=== PATIENT | female | born 1960 | race Caucasian/White ===

== ENCOUNTER 2018-11-30 09:47 | Inpatient (IN) | payer BC ==
--- NOTE | 2018-11-30 09:50 | EDM.PDOC ---
ED HPI GENERAL MEDICAL PROBLEM - General Stated Complaint: WHEEZING, BACK PAIN Time Seen by Provider: 11/30/18 09:48 Source of Information: Reports: Patient History Limitations: Reports: No Limitations - History of Present Illness INITIAL COMMENTS - FREE TEXT/NARRATIVE: History of present illness: []Patient has had shortness of breath and a sore throat this week. She went to clinic this morning and received a breathing treatment and was sent to the ER for evaluation after no improvement. Review of systems: As per history of present illness and below otherwise all systems reviewed and negative. Past medical history: As per history of present illness and as reviewed below otherwise noncontributory. Surgical history: As per history of present illness and as reviewed below otherwise noncontributory. Social history: No reported history of drug or alcohol abuse. Family history: As per history of present illness and as reviewed below otherwise noncontributory. Physical exam: General: Well developed, well nourished in NAD HEENT: Atraumatic, normocephalic, pupils reactive, negative for conjunctival pallor or scleral icterus, mucous membranes moist, throat clear, neck supple, nontender, trachea midline. Lungs: Clear to auscultation, breath sounds equal bilaterally, chest nontender. Heart: S1S2, regular, negative for clicks, rubs, or JVD. Abdomen: NABS, Soft, nondistended, nontender. Negative for masses or hepatosplenomegaly. Negative for costovertebral tenderness. Pelvis: Stable nontender. Genitourinary: Deferred. Rectal: Deferred. Extremities: Atraumatic, negative for cords or calf pain. Neurovascular unremarkable. Neuro: Awake, alert, oriented. Cranial nerves II through XII unremarkable. Cerebellum unremarkable. Motor and sensory unremarkable throughout. Exam nonfocal. Skin:warm and dry Diagnostics: Chest x-ray, CBC, chemistry, blood cultures Therapeutics: IV hydration, DuoNeb, continuous albuterol neb, magnesium, ED Course: Patient's wheezing continued in the ER despite treatment Impression: Left basilar atelectasis with reactive airway Prescriptions: None Plan: Patient is requesting to be admitted she feels unimproved. Definitive disposition and diagnosis as appropriate pending reevaluation and review of above. Back Pain Score (Numeric/FACES): 7 - Related Data Allergies Allergy/AdvReac Type Severity Reaction Status Date / Time No Known Allergies Allergy Verified 11/30/18 09:50 Home Meds: Home Meds Multivitamin [Multivitamins] 1 each PO DAILY 11/30/18 [History] traZODone HCl [Trazodone HCl] 50 mg PO BEDTIME 11/30/18 [History] ED ROS GENERAL - Review of Systems Review Of Systems: See Below ED EXAM, GENERAL - Physical Exam Exam: See Below Course - Vital Signs Last Recorded V/S: Last Vital Signs Temp 97.0 F 11/30/18 09:52 Pulse 83 11/30/18 09:52 Resp 24 H 11/30/18 09:52 BP Pulse Ox 95 11/30/18 09:52 - Orders/Labs/Meds Orders: Active Orders 24 hr Category Date Time Status Patient Status [ADT] Stat ADT 11/30/18 11:07 Active RT Aerosol Therapy [RC] ASDIRECTED Care 11/30/18 09:51 Active RT Aerosol Therapy [RC] ASDIRECTED Care 11/30/18 09:59 Active COMPREHENSIVE METABOLIC PN,CMP [CHEM] Stat Lab 11/30/18 10:58 Received CULTURE BLOOD [BC] Stat Lab 11/30/18 10:54 Ordered CULTURE BLOOD [BC] Stat Lab 11/30/18 10:58 Received Magnesium Sulfate/Water [Magnesium Sulfate in Water Med 11/30/18 10:53 Active Premix] 2 gm Premix Bag 1 bag IV ONETIME Sodium Chloride 0.9% [Saline Flush] Med 11/30/18 10:16 Active 10 ml FLUSH ASDIRECTED PRN Sodium Chloride 0.9% [Saline Flush] Med 11/30/18 10:16 Active 2.5 ml FLUSH ASDIRECTED PRN Blood Culture x2 Reflex Set [OM.PC] Stat Oth 11/30/18 10:54 Ordered Saline Lock Insert [OM.PC] Stat Oth 11/30/18 10:16 Ordered Medication Orders Magnesium Sulfate 2 gm/ Premix 50 mls @ 25 mls/hr IV ONETIME ONE Stop: 11/30/18 12:52 Sodium Chloride (Saline Flush) 10 ml FLUSH ASDIRECTED PRN PRN Reason: Keep Vein Open Last Admin: 11/30/18 10:32 Dose: 10 ml Sodium Chloride (Saline Flush) 2.5 ml FLUSH ASDIRECTED PRN PRN Reason: Keep Vein Open Last Admin: 11/30/18 10:32 Dose: 2.5 ml Labs: Laboratory Tests 11/30/18 Range/Units 10:58 WBC 7.33 (4.0-11.0) K/uL RBC 4.89 (4.30-5.90) M/uL Hgb 14.2 (12.0-16.0) g/dL Hct 41.6 (36.0-46.0) % MCV 85.1 (80.0-98.0) fL MCH 29.0 (27.0-32.0) pg MCHC 34.1 (31.0-37.0) g/dL RDW Std Deviation 40.7 (28.0-62.0) fl RDW Coeff of Du 13 (11.0-15.0) % Plt Count 226 (150-400) K/uL MPV 10.20 (7.40-12.00) fL Neut % (Auto) 63.7 (48.0-80.0) % Lymph % (Auto) 26.1 (16.0-40.0) % [place] % (Auto) 10.0 (0.0-15.0) % Eos % (Auto) 0.1 (0.0-7.0) % Baso % (Auto) 0.1 (0.0-1.5) % Neut # (Auto) 4.7 (1.4-5.7) K/uL Lymph # (Auto) 1.9 (0.6-2.4) K/uL [place] # (Auto) 0.7 (0.0-0.8) K/uL Eos # (Auto) 0.0 (0.0-0.7) K/uL Baso # (Auto) 0.0 (0.0-0.1) K/uL Nucleated RBC % 0.0 /100WBC Nucleated RBCs # 0 K/uL Meds: Medications Generic Name Dose Route Start Last Admin Trade Name Freq PRN Reason Stop Dose Admin Magnesium Sulfate 2 gm/ Premix 50 mls @ 25 mls/hr 11/30/18 10:53 IV 11/30/18 12:52 ONETIME ONE Sodium Chloride 10 ml 11/30/18 10:16 11/30/18 10:32 Saline Flush FLUSH 10 ml ASDIRECTED PRN Administration Keep Vein Open Sodium Chloride 2.5 ml 11/30/18 10:16 11/30/18 10:32 Saline Flush FLUSH 2.5 ml ASDIRECTED PRN Administration Keep Vein Open Discontinued Medications Generic Name Dose Route Start Last Admin Trade Name Freq PRN Reason Stop Dose Admin Albuterol 10 mg 11/30/18 09:58 11/30/18 10:11 Proventil Neb Soln NEB 11/30/18 09:59 2 ml ONETIME ONE Administration Albuterol/Ipratropium 3 ml 11/30/18 09:51 11/30/18 09:56 Duoneb 3.0-0.5 Mg/3 Ml NEB 11/30/18 09:52 3 ml ONETIME ONE Administration Sodium Chloride 1,000 mls @ 999 mls/hr 11/30/18 10:16 11/30/18 10:32 Normal Saline IV 11/30/18 11:16 999 mls/hr .Bolus ONE Administration Ceftriaxone Sodium/Dextrose 1 50 mls @ 100 mls/hr 11/30/18 10:38 11/30/18 11: 20 gm/ Premix IV 11/30/18 11:07 100 mls/hr ONETIME ONE Administration Prednisone 60 mg 11/30/18 09:51 11/30/18 10:11 Prednisone PO 11/30/18 09:52 60 mg ONETIME ONE Administration Departure - Departure Time of Disposition: 11:23 Disposition: Refer to Observation Condition: Good Clinical Impression: Pneumonia Qualifiers: Pneumonia type: due to unspecified organism Laterality: left Lung location: lower lobe of lung Qualified Code(s): J18.1 - Lobar pneumonia, unspecified organism - Discharge Information *PRESCRIPTION DRUG MONITORING PROGRAM REVIEWED*: No *COPY OF PRESCRIPTION DRUG MONITORING REPORT IN PATIENT RUDOLPH: No Referrals: PCP,Not In Area [Primary Care Provider] - Additional Instructions: The following information is given to patients seen in the emergency department who are being discharged to home. This information is to outline your options for follow-up care. We provide all patients seen in our emergency department with a follow-up referral. The need for follow-up, as well as the timing and circumstances, are variable depending upon the specifics of your emergency department visit. If you don't have a primary care physician on staff, we will provide you with a referral. We always advise you to contact your personal physician following an emergency department visit to inform them of the circumstance of the visit and for follow-up with them and/or the need for any referrals to a consulting specialist. The emergency department will also refer you to a specialist when appropriate. This referral assures that you have the opportunity for follow-up care with a specialist. All of these measure are taken in an effort to provide you with optimal care, which includes your follow-up. Under all circumstances we always encourage you to contact your private physician who remains a resource for coordinating your care. When calling for follow-up care, please make the office aware that this follow-up is from your recent emergency room visit. If for any reason you are refused follow-up, please contact the [facility] Emergency Department at and asked to speak to the emergency department charge nurse. - My Orders Last 24 Hours: My Active Orders 11/30/18 09:51 RT Aerosol Therapy [RC] ASDIRECTED 11/30/18 09:59 RT Aerosol Therapy [RC] ASDIRECTED 11/30/18 10:16 Sodium Chloride 0.9% [Saline Flush] 10 ml FLUSH ASDIRECTED PRN Sodium Chloride 0.9% [Saline Flush] 2.5 ml FLUSH ASDIRECTED PRN Saline Lock Insert [OM.PC] Stat 11/30/18 10:53 Magnesium Sulfate/Water [Magnesium Sulfate in Water Premix] 2 gm Premix Bag 1 bag IV ONETIME 11/30/18 10:54 CULTURE BLOOD [BC] Stat Blood Culture x2 Reflex Set [OM.PC] Stat 11/30/18 10:58 COMPREHENSIVE METABOLIC PN,CMP [CHEM] Stat CULTURE BLOOD [BC] Stat 11/30/18 11:07 Patient Status [ADT] Stat - Assessment/Plan Last 24 Hours: My Active Orders 11/30/18 09:51 RT Aerosol Therapy [RC] ASDIRECTED 11/30/18 09:59 RT Aerosol Therapy [RC] ASDIRECTED 11/30/18 10:16 Sodium Chloride 0.9% [Saline Flush] 10 ml FLUSH ASDIRECTED PRN Sodium Chloride 0.9% [Saline Flush] 2.5 ml FLUSH ASDIRECTED PRN Saline Lock Insert [OM.PC] Stat 11/30/18 10:53 Magnesium Sulfate/Water [Magnesium Sulfate in Water Premix] 2 gm Premix Bag 1 bag IV ONETIME 11/30/18 10:54 CULTURE BLOOD [BC] Stat Blood Culture x2 Reflex Set [OM.PC] Stat 11/30/18 10:58 COMPREHENSIVE METABOLIC PN,CMP [CHEM] Stat CULTURE BLOOD [BC] Stat 11/30/18 11:07 Patient Status [ADT] Stat
[2018-11-30] MEDS ORDERED: Albuterol/Ipratropium 3.0-0.5 MG/3 ML Neb Soln NEB ONE (09:51)
[2018-11-30] MEDS ORDERED: predniSONE 20 MG Tab PO ONE (09:51)
[2018-11-30] MEDS ORDERED: Albuterol 0.5% 5 MG/ML Neb Soln 20 ML Bottle NEB ONE (09:58)
[2018-11-30] MEDS ORDERED: Sodium Chloride 0.9% 1,000 ML IV ONE (10:16)
[2018-11-30] MEDS ORDERED: Sodium Chloride 0.9% 10 ML Syringe FLUSH PRN (10:16)
[2018-11-30] MEDS ORDERED: Sodium Chloride 0.9% 2.5 ML Syringe FLUSH PRN (10:16)
--- NOTE | 2018-11-30 10:17 | CR ---
EXAMINATION: Portable chest radiograph. HISTORY: Shortness of breath. FINDINGS: The trachea is midline. The cardiomediastinal silhouette is within normal limits. Mild left basilar atelectasis and/or infiltrate. A trace left pleural effusion is not excluded. No pneumothorax. Osseous structures appear unremarkable. IMPRESSION: 1. Mild left basilar infiltrate and/or atelectasis.
[2018-11-30] MEDS ORDERED: cefTRIAXone 1 GM in Premix Bag 1 BAG IV ONE (10:38)
[2018-11-30] MEDS ORDERED: Magnesium Sulfate/Water 2 GM in Premix Bag 1 BAG IV ONE (10:53)
[2018-11-30 11:59] LABS: CHLORIDE,CL 107 mmol/L (98-107); SODIUM,NA 141 mmol/L (136-145)
[2018-11-30] MEDS ORDERED: Albuterol/Ipratropium 3.0-0.5 MG/3 ML Neb Soln NEB PRN (12:19)
--- NOTE | 2018-11-30 12:24 | PCM.HP ---
H&P History of Present Illness - General Date of Service: 11/30/18 Admit Problem/Dx: Admission Diagnosis/Problem Admission Diagnosis/Problem Pneumonia - History of Present Illness Initial Comments - Free Text/Narative: 58 yo female who presented with a three day history of shortness of breath, nonproductive cough, fevers and chills. She reports wheezing. She has had a bronchitis and pneumonia in the past but no diagnosis of asthma or COPD. She is a former smoker. Back Pain Score (Numeric/FACES): 7 - Related Data Allergies/Adverse Reactions: Allergies Allergy/AdvReac Type Severity Reaction Status Date / Time No Known Allergies Allergy Verified 11/30/18 12:53 Home Medications: Home Meds Aspirin [Adult Low Dose Aspirin EC] 81 mg PO Q48H 11/30/18 [History] Multivitamin [Multivitamins] 1 each PO DAILY 11/30/18 [History] traZODone HCl [Trazodone HCl] 50 mg PO BEDTIME 11/30/18 [History] Past Medical History - Infectious Disease History Infectious Disease History: Reports: Chicken Pox, Measles, Mumps - Past Surgical History GI Surgical History: Reports: Cholecystectomy Female Surgical History: Reports: Breast Biopsy, Hysterectomy Musculoskeletal Surgical History: Reports: Hip Replacement Other Musculoskeletal Surgeries/Procedures:: Left hip March 2018 Social & Family History - Family History Family Medical History: Noncontributory - Tobacco Use Smoking Status *Q: Former Smoker Used Tobacco, but Quit: Yes Month/Year Tobacco Last Used: 2008 - Caffeine Use Caffeine Use: Reports: Coffee - Recreational Drug Use Recreational Drug Use: No H&P Review of Systems - Review of Systems: Review Of Systems: ROS reveals no pertinent complaints other than HPI. Exam - Exam Exam: See Below - Vital Signs Vital Signs: Last Vital Signs Temp 36.1 C 11/30/18 09:52 Pulse 75 11/30/18 12:05 Resp 18 11/30/18 11:21 BP 119/82 11/30/18 11:21 Pulse Ox 96 11/30/18 12:05 Weight: 86.183 kg - Exam General: Alert, Oriented Lungs: Normal Respiratory Effort, Wheezing Cardiovascular: Regular Rate, Regular Rhythm GI/Abdominal Exam: Soft, Non-Tender Skin: Warm, Dry Neurological: Cranial Nerves Intact - Patient Data Lab Results Last 24 hrs: Laboratory Results - last 24 hr 11/30/18 11/30/18 11/30/18 Range/Units 10:58 10:58 11:43 WBC 7.33 (4.0-11.0) K/uL RBC 4.89 (4.30-5.90) M/uL Hgb 14.2 (12.0-16.0) g/dL Hct 41.6 (36.0-46.0) % MCV 85.1 (80.0-98.0) fL MCH 29.0 (27.0-32.0) pg MCHC 34.1 (31.0-37.0) g/dL RDW Std Deviation 40.7 (28.0-62.0) fl RDW Coeff of Du 13 (11.0-15.0) % Plt Count 226 (150-400) K/uL MPV 10.20 (7.40-12.00) fL Neut % (Auto) 63.7 (48.0-80.0) % Lymph % (Auto) 26.1 (16.0-40.0) % [place] % (Auto) 10.0 (0.0-15.0) % Eos % (Auto) 0.1 (0.0-7.0) % Baso % (Auto) 0.1 (0.0-1.5) % Neut # (Auto) 4.7 (1.4-5.7) K/uL Lymph # (Auto) 1.9 (0.6-2.4) K/uL [place] # (Auto) 0.7 (0.0-0.8) K/uL Eos # (Auto) 0.0 (0.0-0.7) K/uL Baso # (Auto) 0.0 (0.0-0.1) K/uL Nucleated RBC % 0.0 /100WBC Nucleated RBCs # 0 K/uL Sodium 141 (136-145) mmol/L Potassium 4.0 (3.5-5.1) mmol/L Chloride 107 (98-107) mmol/L Carbon Dioxide 21.5 (21.0-32.0) mmol/L BUN 13 (7.0-18.0) mg/dL Creatinine 0.7 (0.6-1.0) mg/dL Est Cr Clr Drug Dosing 84.01 mL/min Estimated GFR (MDRD) > 60.0 ml/min Glucose 98 (74-106) mg/dL Calcium 8.9 (8.5-10.1) mg/dL Total Bilirubin 0.5 (0.2-1.0) mg/dL AST 30 (15-37) IU/L ALT 40 (14-63) IU/L Alkaline Phosphatase 55 (46-116) U/L Total Protein 7.5 (6.4-8.2) g/dL Albumin 3.6 (3.4-5.0) g/dL Globulin 3.9 (2.6-4.0) g/dL Albumin/Globulin Ratio 0.9 (0.9-1.6) Urine Color YELLOW Urine Appearance CLEAR Urine pH 5.5 (5.0-8.0) Ur Specific [place] 1.010 (1.001-1.035) Urine Protein NEGATIVE (NEGATIVE) mg/dL Urine Glucose (UA) NEGATIVE (NEGATIVE) mg/dL Urine Ketones NEGATIVE (NEGATIVE) mg/dL Urine Occult Blood NEGATIVE (NEGATIVE) Urine Nitrite NEGATIVE (NEGATIVE) Urine Bilirubin NEGATIVE (NEGATIVE) Urine Urobilinogen 0.2 (<2.0) EU/dL Ur Leukocyte Esterase MODERATE H (NEGATIVE) Urine RBC 0-1 (0-2/HPF) Urine WBC 2-4 (0-5/HPF) Ur Epithelial Cells RARE (NONE-FEW) Urine Bacteria FEW (NEGATIVE) Result Diagrams: 12/01/18 05:20 12/01/18 05:20 Problem List Initiated/Reviewed/Updated: Yes Orders Last 24hrs: Active Orders 24 hr Category Date Time Status Patient Status [ADT] Stat ADT 11/30/18 11:07 Active Oxygen Therapy Adult [Oxygen Therapy, ED] [RC] Care 11/30/18 12:04 Active ASDIRECTED RT Aerosol Therapy [RC] ASDIRECTED Care 11/30/18 09:51 Active RT Aerosol Therapy [RC] ASDIRECTED Care 11/30/18 09:59 Active RT Aerosol Therapy [RC] ASDIRECTED Care 11/30/18 12:20 Ordered CULTURE BLOOD [BC] Stat Lab 11/30/18 10:58 Received CULTURE BLOOD [BC] Stat Lab 11/30/18 11:10 Received CULTURE SPUTUM + SMEAR [RM] Routine Lab 11/30/18 12:21 Ordered CULTURE URINE [RM] Stat Lab 11/30/18 11:43 Received Albuterol/Ipratropium [DuoNeb 3.0-0.5 MG/3 ML] Med 11/30/18 12:19 Ordered 3 ml NEB Q2H PRN Azithromycin [Zithromax] 500 mg Med 11/30/18 12:30 Ordered Sodium Chloride 0.9% [Normal Saline] 250 ml IV Q24H Magnesium Sulfate/Water [Magnesium Sulfate in Water Med 11/30/18 10:53 Active Premix] 2 gm Premix Bag 1 bag IV ONETIME Sodium Chloride 0.9% [Saline Flush] Med 11/30/18 10:16 Active 10 ml FLUSH ASDIRECTED PRN Sodium Chloride 0.9% [Saline Flush] Med 11/30/18 10:16 Active 2.5 ml FLUSH ASDIRECTED PRN cefTRIAXone [Rocephin] 1 gm Med 12/01/18 12:30 Ordered Sodium Chloride 0.9% [Normal Saline] 50 ml IV Q24H methylPREDNISolone Sod Succ [Solu-MEDROL] Med 12/01/18 16:00 Ordered 125 mg IVPUSH Q8H traZODone Med 11/30/18 21:00 Ordered 50 mg PO BEDTIME Blood Culture x2 Reflex Set [OM.PC] Stat Oth 11/30/18 10:54 Ordered Saline Lock Insert [OM.PC] Stat Oth 11/30/18 10:16 Ordered Medication Orders Albuterol/Ipratropium (Duoneb 3.0-0.5 Mg/3 Ml) 3 ml NEB Q2H PRN PRN Reason: Wheezing Magnesium Sulfate 2 gm/ Premix 50 mls @ 25 mls/hr IV ONETIME ONE Stop: 11/30/18 12:52 Last Admin: 11/30/18 12:02 Dose: 25 mls/hr Azithromycin 500 mg/ Sodium (Chloride) 250 mls @ 250 mls/hr IV Q24H JEFFERY Ceftriaxone Sodium 1 gm/ (Sodium Chloride) 50 mls @ 100 mls/hr IV Q24H JEFFERY Methylprednisolone Sodium Succinate (Solu-Medrol) 125 mg IVPUSH Q8H JEFFERY Sodium Chloride (Saline Flush) 10 ml FLUSH ASDIRECTED PRN PRN Reason: Keep Vein Open Last Admin: 11/30/18 10:32 Dose: 10 ml Sodium Chloride (Saline Flush) 2.5 ml FLUSH ASDIRECTED PRN PRN Reason: Keep Vein Open Last Admin: 11/30/18 10:32 Dose: 2.5 ml Trazodone HCl (Trazodone) 50 mg PO BEDTIME [facility] Assessment/Plan Comment:: 58 yo female admitted with Pneumonia with reactive airway disease. We will treat with Rocephin, Azithromycin, solumedrol, and duonebs. Patient will likely need outpatient PFTs.
[2018-11-30] MEDS: Azithromycin 500 MG in Sodium Chloride 0.9% 250 ML IV SCH (14:21)
[2018-11-30] MEDS: Acetaminophen 325 MG Tab PO PRN ×2 (14:49→20:15)
[2018-11-30] MEDS: Albuterol/Ipratropium 3.0-0.5 MG/3 ML Neb Soln NEB SCH (17:53)
[2018-11-30] MEDS: traZODone 50 MG Tab PO SCH (20:15)
[2018-12-01] MEDS: Albuterol/Ipratropium 3.0-0.5 MG/3 ML Neb Soln NEB SCH ×5 (00:04→23:05)
[2018-12-01 05:45] LABS: CHLORIDE,CL 110 mmol/L (98-107); SODIUM,NA 143 mmol/L (136-145)
[2018-12-01] MEDS: Acetaminophen 325 MG Tab PO PRN ×4 (06:26→23:01)
--- NOTE | 2018-12-01 11:49 | PCM.PN ---
- General Info Date of Service: 12/01/18 - Review of Systems Systems Review Comment:: reports no improvement in cough or shortness of breath, daughter believes patient is looking better. - Patient Data Vitals - Most Recent: Last Vital Signs Temp 36.2 C 12/01/18 11:00 Pulse 68 12/01/18 11:00 Resp 18 12/01/18 11:00 BP 125/60 12/01/18 11:00 Pulse Ox 96 12/01/18 11:00 Weight - Most Recent: 86.183 kg I&O - Last 24 Hours: Intake & Output 11/30/18 12/01/18 12/01/18 22:59 06:59 14:59 Intake Total 490 500 Output Total 250 600 Balance 240 -100 Lab Results Last 24 Hours: Laboratory Results - last 24 hr 11/30/18 11/30/18 12/01/18 Range/Units 10:58 11:43 05:20 WBC 7.00 (4.0-11.0) K/uL RBC 4.64 (4.30-5.90) M/uL Hgb 13.2 (12.0-16.0) g/dL Hct 39.9 (36.0-46.0) % MCV 86.0 (80.0-98.0) fL MCH 28.4 (27.0-32.0) pg MCHC 33.1 (31.0-37.0) g/dL RDW Std Deviation 41.2 (28.0-62.0) fl RDW Coeff of Du 13 (11.0-15.0) % Plt Count 228 (150-400) K/uL MPV 10.10 (7.40-12.00) fL Nucleated RBC % 0.0 /100WBC Nucleated RBCs # 0 K/uL Sodium 141 (136-145) mmol/L Potassium 4.0 (3.5-5.1) mmol/L Chloride 107 (98-107) mmol/L Carbon Dioxide 21.5 (21.0-32.0) mmol/L BUN 13 (7.0-18.0) mg/dL Creatinine 0.7 (0.6-1.0) mg/dL Est Cr Clr Drug Dosing 84.01 mL/min Estimated GFR (MDRD) > 60.0 ml/min Glucose 98 (74-106) mg/dL Calcium 8.9 (8.5-10.1) mg/dL Total Bilirubin 0.5 (0.2-1.0) mg/dL AST 30 (15-37) IU/L ALT 40 (14-63) IU/L Alkaline Phosphatase 55 (46-116) U/L Total Protein 7.5 (6.4-8.2) g/dL Albumin 3.6 (3.4-5.0) g/dL Globulin 3.9 (2.6-4.0) g/dL Albumin/Globulin Ratio 0.9 (0.9-1.6) Urine Color YELLOW Urine Appearance CLEAR Urine pH 5.5 (5.0-8.0) Ur Specific [place] 1.010 (1.001-1.035) Urine Protein NEGATIVE (NEGATIVE) mg/dL Urine Glucose (UA) NEGATIVE (NEGATIVE) mg/dL Urine Ketones NEGATIVE (NEGATIVE) mg/dL Urine Occult Blood NEGATIVE (NEGATIVE) Urine Nitrite NEGATIVE (NEGATIVE) Urine Bilirubin NEGATIVE (NEGATIVE) Urine Urobilinogen 0.2 (<2.0) EU/dL Ur Leukocyte Esterase MODERATE H (NEGATIVE) Urine RBC 0-1 (0-2/HPF) Urine WBC 2-4 (0-5/HPF) Ur Epithelial Cells RARE (NONE-FEW) Urine Bacteria FEW (NEGATIVE) 12/01/18 Range/Units 05:20 WBC (4.0-11.0) K/uL RBC (4.30-5.90) M/uL Hgb (12.0-16.0) g/dL Hct (36.0-46.0) % MCV (80.0-98.0) fL MCH (27.0-32.0) pg MCHC (31.0-37.0) g/dL RDW Std Deviation (28.0-62.0) fl RDW Coeff of Du (11.0-15.0) % Plt Count (150-400) K/uL MPV (7.40-12.00) fL Nucleated RBC % /100WBC Nucleated RBCs # K/uL Sodium 143 (136-145) mmol/L Potassium 3.8 (3.5-5.1) mmol/L Chloride 110 H (98-107) mmol/L Carbon Dioxide 23.0 (21.0-32.0) mmol/L BUN 10 (7.0-18.0) mg/dL Creatinine 0.7 (0.6-1.0) mg/dL Est Cr Clr Drug Dosing 84.01 mL/min Estimated GFR (MDRD) > 60.0 ml/min Glucose 92 (74-106) mg/dL Calcium 8.5 (8.5-10.1) mg/dL Total Bilirubin (0.2-1.0) mg/dL AST (15-37) IU/L ALT (14-63) IU/L Alkaline Phosphatase (46-116) U/L Total Protein (6.4-8.2) g/dL Albumin (3.4-5.0) g/dL Globulin (2.6-4.0) g/dL Albumin/Globulin Ratio (0.9-1.6) Urine Color Urine Appearance Urine pH (5.0-8.0) Ur Specific [place] (1.001-1.035) Urine Protein (NEGATIVE) mg/dL Urine Glucose (UA) (NEGATIVE) mg/dL Urine Ketones (NEGATIVE) mg/dL Urine Occult Blood (NEGATIVE) Urine Nitrite (NEGATIVE) Urine Bilirubin (NEGATIVE) Urine Urobilinogen (<2.0) EU/dL Ur Leukocyte Esterase (NEGATIVE) Urine RBC (0-2/HPF) Urine WBC (0-5/HPF) Ur Epithelial Cells (NONE-FEW) Urine Bacteria (NEGATIVE) Adal Results Last 24 Hours: Microbiology 11/30/18 11:10 Aerobic Blood Culture - Preliminary Blood - Venous - Lab Draw NO GROWTH AFTER 1 DAY Anaerobic Blood Culture - Preliminary NO GROWTH AFTER 1 DAY 11/30/18 10:58 Aerobic Blood Culture - Preliminary Blood - Venous NO GROWTH AFTER 1 DAY Anaerobic Blood Culture - Preliminary NO GROWTH AFTER 1 DAY Med Orders - Current: Current Medications Acetaminophen (Tylenol) 650 mg PO Q4H PRN PRN Reason: Pain Last Admin: 12/01/18 10:37 Dose: 650 mg Albuterol/Ipratropium (Duoneb 3.0-0.5 Mg/3 Ml) 3 ml NEB Q2H PRN PRN Reason: Wheezing Albuterol/Ipratropium (Duoneb 3.0-0.5 Mg/3 Ml) 3 ml NEB Q6HRRT JEFFERY Last Admin: 12/01/18 11:11 Dose: 3 ml Azithromycin 500 mg/ Sodium (Chloride) 250 mls @ 250 mls/hr IV Q24H [facility] Last Admin: 11/30/18 14:21 Dose: 250 mls/hr Ceftriaxone Sodium 1 gm/ (Sodium Chloride) 50 mls @ 100 mls/hr IV Q24H JEFFERY Methylprednisolone Sodium Succinate (Solu-Medrol) 125 mg IVPUSH Q8H [facility] Sodium Chloride (Saline Flush) 10 ml FLUSH ASDIRECTED PRN PRN Reason: Keep Vein Open Last Admin: 11/30/18 10:32 Dose: 10 ml Sodium Chloride (Saline Flush) 2.5 ml FLUSH ASDIRECTED PRN PRN Reason: Keep Vein Open Last Admin: 11/30/18 10:32 Dose: 2.5 ml Trazodone HCl (Trazodone) 50 mg PO BEDTIME [facility] Last Admin: 11/30/18 20:15 Dose: 50 mg Discontinued Medications Albuterol (Proventil Neb Soln) 10 mg NEB ONETIME ONE Stop: 11/30/18 09:59 Last Admin: 11/30/18 10:11 Dose: 2 ml Albuterol/Ipratropium (Duoneb 3.0-0.5 Mg/3 Ml) 3 ml NEB ONETIME ONE Stop: 11/30/18 09:52 Last Admin: 11/30/18 09:56 Dose: 3 ml Sodium Chloride (Normal Saline) 1,000 mls @ 999 mls/hr IV .Bolus ONE Stop: 11/30/18 11:16 Last Admin: 11/30/18 10:32 Dose: 999 mls/hr Ceftriaxone Sodium/Dextrose 1 (gm/ Premix) 50 mls @ 100 mls/hr IV ONETIME ONE Stop: 11/30/18 11:07 Last Admin: 11/30/18 11:20 Dose: 100 mls/hr Magnesium Sulfate 2 gm/ Premix 50 mls @ 25 mls/hr IV ONETIME ONE Stop: 11/30/18 12:52 Last Admin: 11/30/18 12:02 Dose: 25 mls/hr Prednisone (Prednisone) 60 mg PO ONETIME ONE Stop: 11/30/18 09:52 Last Admin: 11/30/18 10:11 Dose: 60 mg - Exam General: Alert, Oriented Neck: Supple Lungs: Normal Respiratory Effort, Rhonchi, Wheezing Extremities: Non-Tender, No Pedal Edema Skin: Warm, Dry, Intact Neurological: No New Focal Deficit - Problem List Review Problem List Initiated/Reviewed/Updated: Yes - My Orders Last 24 Hours: My Active Orders 11/30/18 12:19 Albuterol/Ipratropium [DuoNeb 3.0-0.5 MG/3 ML] 3 ml NEB Q2H PRN 11/30/18 12:20 RT Aerosol Therapy [RC] ASDIRECTED 11/30/18 12:21 CULTURE SPUTUM + SMEAR [RM] Routine 11/30/18 12:25 Antiembolic Devices [RC] PER UNIT ROUTINE Oxygen Therapy [RC] PRN Up ad Jolene [RC] ASDIRECTED VTE/DVT Education [RC] PER UNIT ROUTINE Vital Signs [RC] Q4H Sequential Compression Device [OM.PC] Per Unit Routine Resuscitation Status Routine 11/30/18 12:27 RT Aerosol Therapy [RC] ASDIRECTED 11/30/18 12:30 Azithromycin [Zithromax] 500 mg Sodium Chloride 0.9% [Normal Saline] 250 ml IV Q24H 11/30/18 18:00 Albuterol/Ipratropium [DuoNeb 3.0-0.5 MG/3 ML] 3 ml NEB Q6HRRT 11/30/18 21:00 traZODone 50 mg PO BEDTIME 12/01/18 13:30 cefTRIAXone [Rocephin] 1 gm Sodium Chloride 0.9% [Normal Saline] 50 ml IV Q24H 12/01/18 16:00 methylPREDNISolone Sod Succ [Solu-MEDROL] 125 mg IVPUSH Q8H 12/02/18 05:11 BASIC METABOLIC PANEL,BMP [CHEM] AM CBC WITH AUTO DIFF [HEME] AM - Plan Plan:: 58 yo female admitted with Pneumonia and reactive airway disease. Pneumonia: continue Rocephin and azithromycin Bronchitis: continue Solumol and duonebs.
[2018-12-01] MEDS: Azithromycin 500 MG in Sodium Chloride 0.9% 250 ML IV SCH (12:28)
--- NOTE | 2018-12-01 13:17 | PCM.SN ---
- Free Text/Narrative Note: Patient has had slow progress on her shortness of breath and hypoxia She is still requiring supplemental oxygen and receiving IV antibiotics. We will switch patient to an inpatient room.
[2018-12-01] MEDS: methylPREDNISolone Sodium Succinate 125 MG/2 ML SDV IVPUSH SCH ×2 (16:21→23:05)
[2018-12-01] MEDS: cefTRIAXone 1 GM in Sodium Chloride 0.9% 50 ML IV SCH (17:44)
[2018-12-01] MEDS: traZODone 50 MG Tab PO SCH (21:46)
[2018-12-02] MEDS: Acetaminophen 325 MG Tab PO PRN ×4 (03:56→16:20)
[2018-12-02] MEDS: Albuterol/Ipratropium 3.0-0.5 MG/3 ML Neb Soln NEB SCH ×4 (06:05→23:19)
[2018-12-02 06:07] LABS: CHLORIDE,CL 108 mmol/L (98-107); SODIUM,NA 140 mmol/L (136-145)
[2018-12-02] MEDS: methylPREDNISolone Sodium Succinate 125 MG/2 ML SDV IVPUSH SCH ×2 (08:17→09:08)
[2018-12-02] MEDS: predniSONE 20 MG Tab PO SCH (09:09)
[2018-12-02] MEDS: Ibuprofen 400 MG Tab PO PRN ×2 (09:09→20:25)
--- NOTE | 2018-12-02 11:06 | PCM.PN ---
- General Info Date of Service: 12/02/18 - Review of Systems Systems Review Comment:: patient reports cough has worsened, reports headache. - Patient Data Vitals - Most Recent: Last Vital Signs Temp 36.4 C 12/02/18 10:09 Pulse 86 12/02/18 04:00 Resp 20 12/02/18 07:20 BP 120/60 12/02/18 07:20 Pulse Ox 94 L 12/02/18 07:20 Weight - Most Recent: 86.183 kg I&O - Last 24 Hours: Intake & Output 12/01/18 12/02/18 12/02/18 22:59 06:59 14:59 Intake Total 740 960 Output Total 100 1400 Balance 640 -440 Lab Results Last 24 Hours: Laboratory Results - last 24 hr 12/02/18 12/02/18 Range/Units 05:12 05:12 WBC 9.10 (4.0-11.0) K/uL RBC 4.77 (4.30-5.90) M/uL Hgb 13.8 (12.0-16.0) g/dL Hct 40.9 (36.0-46.0) % MCV 85.7 (80.0-98.0) fL MCH 28.9 (27.0-32.0) pg MCHC 33.7 (31.0-37.0) g/dL RDW Std Deviation 41.3 (28.0-62.0) fl RDW Coeff of Du 13 (11.0-15.0) % Plt Count 282 (150-400) K/uL MPV 10.40 (7.40-12.00) fL Neut % (Auto) 88.8 H (48.0-80.0) % Lymph % (Auto) 10.0 L (16.0-40.0) % [place] % (Auto) 1.1 (0.0-15.0) % Eos % (Auto) 0.0 (0.0-7.0) % Baso % (Auto) 0.1 (0.0-1.5) % Neut # (Auto) 8.1 H (1.4-5.7) K/uL Lymph # (Auto) 0.9 (0.6-2.4) K/uL [place] # (Auto) 0.1 (0.0-0.8) K/uL Eos # (Auto) 0.0 (0.0-0.7) K/uL Baso # (Auto) 0.0 (0.0-0.1) K/uL Nucleated RBC % 0.0 /100WBC Nucleated RBCs # 0 K/uL Sodium 140 (136-145) mmol/L Potassium 4.2 (3.5-5.1) mmol/L Chloride 108 H (98-107) mmol/L Carbon Dioxide 21.1 (21.0-32.0) mmol/L BUN 12 (7.0-18.0) mg/dL Creatinine 0.7 (0.6-1.0) mg/dL Est Cr Clr Drug Dosing 84.01 mL/min Estimated GFR (MDRD) > 60.0 ml/min Glucose 137 H (74-106) mg/dL Calcium 8.9 (8.5-10.1) mg/dL Adal Results Last 24 Hours: Microbiology 11/30/18 11:43 Urine Culture - Final Urine, Clean Catch MIXED LEONID 10,000-100,000 CFU/ML 12/01/18 13:42 Gram Stain - Preliminary Sputum - Expectorated 11/30/18 11:10 Aerobic Blood Culture - Preliminary Blood - Venous - Lab Draw NO GROWTH AFTER 1 DAY Anaerobic Blood Culture - Preliminary NO GROWTH AFTER 1 DAY 11/30/18 10:58 Aerobic Blood Culture - Preliminary Blood - Venous NO GROWTH AFTER 1 DAY Anaerobic Blood Culture - Preliminary NO GROWTH AFTER 1 DAY Med Orders - Current: Current Medications Acetaminophen (Tylenol) 650 mg PO Q4H PRN PRN Reason: Pain Last Admin: 12/02/18 07:31 Dose: 650 mg Albuterol/Ipratropium (Duoneb 3.0-0.5 Mg/3 Ml) 3 ml NEB Q2H PRN PRN Reason: Wheezing Albuterol/Ipratropium (Duoneb 3.0-0.5 Mg/3 Ml) 3 ml NEB Q6HRRT [facility] Last Admin: 12/02/18 06:05 Dose: 3 ml Azithromycin 500 mg/ Sodium (Chloride) 250 mls @ 250 mls/hr IV Q24H [facility] Last Admin: 12/01/18 12:28 Dose: 250 mls/hr Ceftriaxone Sodium 1 gm/ (Sodium Chloride) 50 mls @ 100 mls/hr IV Q24H [facility] Last Admin: 12/01/18 17:44 Dose: 100 mls/hr Ibuprofen (Motrin) 400 mg PO Q6H PRN PRN Reason: pain/headache Last Admin: 12/02/18 09:09 Dose: 400 mg Pantoprazole Sodium (Protonix) 40 mg PO DAILY JEFFERY Prednisone (Prednisone) 40 mg PO WITHBREAKFAST [facility] Last Admin: 12/02/18 09:09 Dose: 40 mg Sodium Chloride (Saline Flush) 10 ml FLUSH ASDIRECTED PRN PRN Reason: Keep Vein Open Last Admin: 11/30/18 10:32 Dose: 10 ml Sodium Chloride (Saline Flush) 2.5 ml FLUSH ASDIRECTED PRN PRN Reason: Keep Vein Open Last Admin: 11/30/18 10:32 Dose: 2.5 ml Trazodone HCl (Trazodone) 50 mg PO BEDTIME [facility] Last Admin: 12/01/18 21:46 Dose: 50 mg Discontinued Medications Albuterol (Proventil Neb Soln) 10 mg NEB ONETIME ONE Stop: 11/30/18 09:59 Last Admin: 11/30/18 10:11 Dose: 2 ml Albuterol/Ipratropium (Duoneb 3.0-0.5 Mg/3 Ml) 3 ml NEB ONETIME ONE Stop: 11/30/18 09:52 Last Admin: 11/30/18 09:56 Dose: 3 ml Sodium Chloride (Normal Saline) 1,000 mls @ 999 mls/hr IV .Bolus ONE Stop: 11/30/18 11:16 Last Admin: 11/30/18 10:32 Dose: 999 mls/hr Ceftriaxone Sodium/Dextrose 1 (gm/ Premix) 50 mls @ 100 mls/hr IV ONETIME ONE Stop: 11/30/18 11:07 Last Admin: 11/30/18 11:20 Dose: 100 mls/hr Magnesium Sulfate 2 gm/ Premix 50 mls @ 25 mls/hr IV ONETIME ONE Stop: 11/30/18 12:52 Last Admin: 11/30/18 12:02 Dose: 25 mls/hr Methylprednisolone Sodium Succinate (Solu-Medrol) 125 mg IVPUSH Q8H [facility] Last Admin: 12/02/18 09:08 Dose: Not Given Prednisone (Prednisone) 60 mg PO ONETIME ONE Stop: 11/30/18 09:52 Last Admin: 11/30/18 10:11 Dose: 60 mg - Exam General: Alert, Oriented Neck: Supple Lungs: Clear to Auscultation, Normal Respiratory Effort Cardiovascular: Regular Rate, Regular Rhythm GI/Abdominal Exam: Soft, Non-Tender Extremities: Non-Tender, No Pedal Edema Skin: Warm, Dry, Intact - Problem List Review Problem List Initiated/Reviewed/Updated: Yes - My Orders Last 24 Hours: My Active Orders 12/01/18 13:03 Admission Status [Patient Status] [ADT] Routine 12/01/18 13:30 cefTRIAXone [Rocephin] 1 gm Sodium Chloride 0.9% [Normal Saline] 50 ml IV Q24H 12/02/18 11:15 Azithromycin [Zithromax] 250 mg PO Q24H Pantoprazole [ProTONIX] 40 mg PO DAILY - Plan Plan:: 58 yo female admitted with Pneumonia and reactive airway disease. Pneumonia: continue Rocephin and azithromycin Bronchitis: continue Solumol and duonebs. Patient reports no improvement in symptoms, but clinically she appears to be much better today. Wheezing on exam has improved.
[2018-12-02] MEDS: Pantoprazole 40 MG Tab.CR PO SCH (11:21)
[2018-12-02] MEDS: Azithromycin 250 MG Tab PO SCH (11:30)
[2018-12-02] MEDS: SUMAtriptan 50 MG Tab PO PRN ×2 (13:39→19:01)
[2018-12-02] MEDS ORDERED: Lidocaine 2% 5 ML SDV ONE (18:07)
--- NOTE | 2018-12-02 18:20 | PCM.SN ---
- Free Text/Narrative Note: Called by nursing as they have been unable to obtain PIV access and Dr Morton has consulted anesthesia to obtain IV access. Ultrasound was used to identified the Left deep brachial vein, 1% lidocaine was infiltrated for local anesthesia, 20g IV catheter was introduced and threaded into the vein with ultrasound without difficulty. Secured with tape and tegaderm. Patient tolerated placement well.
[2018-12-02] MEDS: cefTRIAXone 1 GM in Sodium Chloride 0.9% 50 ML IV SCH (18:53)
[2018-12-02] MEDS: traZODone 50 MG Tab PO SCH (20:26)
[2018-12-02] MEDS: Acetaminophen/Butalbital/Caffeine 325-50-40 MG Tab PO PRN (22:13)
[2018-12-03] MEDS: Albuterol/Ipratropium 3.0-0.5 MG/3 ML Neb Soln NEB SCH (06:08)
[2018-12-03] MEDS: Acetaminophen/Butalbital/Caffeine 325-50-40 MG Tab PO PRN (08:08)
[2018-12-03] MEDS: Pantoprazole 40 MG Tab.CR PO SCH (08:09)
[2018-12-03] MEDS: predniSONE 20 MG Tab PO SCH (08:10)
[2018-12-03] MEDS ORDERED: Albuterol 8 GM Inhaler INH PRN (11:20)
--- NOTE | 2018-12-03 11:33 | PCM.DCSUM1 ---
Discharge Summary - Discharge Data Discharge Date: 12/03/18 Discharge Disposition: Home, Self-Care 01 Condition: Good - Patient Summary/Data Consults: Consultations 12/02/18 17:51 Consult to Physician [CONS] Urgent Hospital Course: Hospital diagnosis community acquired pneumonia Asthma exacerbation Hospital course: 58 yo female who was admitted for community acquired pnemonia and asthma exacerbation. She presented with a three day history of shortness of breath, nonproductive cough, fevers and chills. She had wheezing noted on lung exam and was requiring 2 liters NC to keep sats above 90%. Chest x-ray revealed left basilar infiltrate. She was treated with Rocephin, Azithromycin, and solumedrol. She did have improvement in her symptoms and resolution of her hypoxia. At time of discharge she was walking hallways satting 93%. She is to be discharged home with three more days of Azithromycin, and a steroid taper. She was given a prescription for albuterol and Advair. She is to follow up in the Residency clinic. - Discharge Plan *PRESCRIPTION DRUG MONITORING PROGRAM REVIEWED*: No *COPY OF PRESCRIPTION DRUG MONITORING REPORT IN PATIENT RUDOLPH: No Prescriptions/Med Rec: Albuterol [Proventil HFA] 1 puff INH Q4H PRN #1 inhaler PRN Reason: Wheezing Azithromycin [Zithromax] 250 mg PO Q24H #3 tablet Fluticasone/Salmeterol [Advair 250-50] 1 puff INH BID #1 diskus predniSONE See Taper PO WITHBREAKFAST #15 tablet Home Medications: Home Meds Aspirin [Adult Low Dose Aspirin EC] 81 mg PO Q48H 11/30/18 [History] Multivitamin [Multivitamins] 1 each PO DAILY 11/30/18 [History] traZODone HCl [Trazodone HCl] 50 mg PO BEDTIME 11/30/18 [History] Albuterol [Proventil HFA] 1 puff INH Q4H PRN #1 inhaler 12/03/18 [Rx] Azithromycin [Zithromax] 250 mg PO Q24H #3 tablet 12/03/18 [Rx] Fluticasone/Salmeterol [Advair 250-50] 1 puff INH BID #1 diskus 12/03/18 [Rx] predniSONE See Taper PO WITHBREAKFAST #15 tablet 12/03/18 [Rx] Patient Handouts: Community-Acquired Pneumonia, Adult, [id number] Referrals: Travis Sellers MD [Resident] - 12/14/18 2:30 pm - Discharge Summary/Plan Comment DC Time >30 min.: No - Patient Data Vitals - Most Recent: Last Vital Signs Temp 36.6 C 12/03/18 07:05 Pulse 76 12/03/18 07:05 Resp 18 12/03/18 07:05 BP 108/56 L 12/03/18 07:05 Pulse Ox 93 L 12/03/18 07:05 Weight - Most Recent: 86.183 kg I&O - Last 24 hours: Intake & Output 12/02/18 12/03/18 12/03/18 22:59 06:59 14:59 Intake Total 920 1100 Output Total 1001 1250 Balance -81 -150 ABRAHAM Results - Last 24 hrs: Microbiology 11/30/18 11:10 Aerobic Blood Culture - Preliminary Blood - Venous - Lab Draw NO GROWTH AFTER 3 DAYS Anaerobic Blood Culture - Preliminary NO GROWTH AFTER 3 DAYS 11/30/18 10:58 Aerobic Blood Culture - Preliminary Blood - Venous NO GROWTH AFTER 3 DAYS Anaerobic Blood Culture - Preliminary NO GROWTH AFTER 3 DAYS 12/01/18 13:42 Gram Stain - Final Sputum - Expectorated Sputum Culture - Final Normal Leonid 11/30/18 11:43 Urine Culture - Final Urine, Clean Catch MIXED LEONID 10,000-100,000 CFU/ML Med Orders - Current: Current Medications Acetaminophen (Tylenol) 650 mg PO Q4H PRN PRN Reason: Pain Last Admin: 12/02/18 16:20 Dose: 650 mg Acetaminophen/Butalbital/Caffeine (Fioricet 325-50-40 Mg) 1 tab PO Q6H PRN PRN Reason: Pain Last Admin: 12/03/18 08:08 Dose: 1 tab Albuterol (Proventil Hfa) 0 gm INH Q4H PRN PRN Reason: Wheezing Albuterol/Ipratropium (Duoneb 3.0-0.5 Mg/3 Ml) 3 ml NEB Q2H PRN PRN Reason: Wheezing Albuterol/Ipratropium (Duoneb 3.0-0.5 Mg/3 Ml) 3 ml NEB Q6HRRT [facility] Last Admin: 12/03/18 06:08 Dose: Not Given Azithromycin (Zithromax) 250 mg PO Q24H [facility] Last Admin: 12/02/18 11:30 Dose: 250 mg Ceftriaxone Sodium 1 gm/ (Sodium Chloride) 50 mls @ 100 mls/hr IV Q24H [facility] Last Admin: 12/02/18 18:53 Dose: 100 mls/hr Ibuprofen (Motrin) 400 mg PO Q6H PRN PRN Reason: pain/headache Last Admin: 12/02/18 20:25 Dose: 400 mg Pantoprazole Sodium (Protonix) 40 mg PO DAILY [facility] Last Admin: 12/03/18 08:09 Dose: 40 mg Prednisone (Prednisone) 40 mg PO WITHBREAKFAST [facility] Last Admin: 12/03/18 08:10 Dose: 40 mg Sodium Chloride (Saline Flush) 10 ml FLUSH ASDIRECTED PRN PRN Reason: Keep Vein Open Last Admin: 11/30/18 10:32 Dose: 10 ml Sodium Chloride (Saline Flush) 2.5 ml FLUSH ASDIRECTED PRN PRN Reason: Keep Vein Open Last Admin: 11/30/18 10:32 Dose: 2.5 ml Trazodone HCl (Trazodone) 50 mg PO BEDTIME [facility] Last Admin: 12/02/18 20:26 Dose: 50 mg Discontinued Medications Albuterol (Proventil Neb Soln) 10 mg NEB ONETIME ONE Stop: 11/30/18 09:59 Last Admin: 11/30/18 10:11 Dose: 2 ml Albuterol/Ipratropium (Duoneb 3.0-0.5 Mg/3 Ml) 3 ml NEB ONETIME ONE Stop: 11/30/18 09:52 Last Admin: 11/30/18 09:56 Dose: 3 ml Sodium Chloride (Normal Saline) 1,000 mls @ 999 mls/hr IV .Bolus ONE Stop: 11/30/18 11:16 Last Admin: 11/30/18 10:32 Dose: 999 mls/hr Ceftriaxone Sodium/Dextrose 1 (gm/ Premix) 50 mls @ 100 mls/hr IV ONETIME ONE Stop: 11/30/18 11:07 Last Admin: 11/30/18 11:20 Dose: 100 mls/hr Magnesium Sulfate 2 gm/ Premix 50 mls @ 25 mls/hr IV ONETIME ONE Stop: 11/30/18 12:52 Last Admin: 11/30/18 12:02 Dose: 25 mls/hr Azithromycin 500 mg/ Sodium (Chloride) 250 mls @ 250 mls/hr IV Q24H [facility] Last Admin: 12/01/18 12:28 Dose: 250 mls/hr Lidocaine (Xylocaine-Mpf 2%) Confirm Administered Dose 5 ml .ROUTE .STK-MED ONE Stop: 12/02/18 18:08 Last Admin: 12/02/18 19:47 Dose: Not Given Methylprednisolone Sodium Succinate (Solu-Medrol) 125 mg IVPUSH Q8H [facility] Last Admin: 12/02/18 09:08 Dose: Not Given Prednisone (Prednisone) 60 mg PO ONETIME ONE Stop: 11/30/18 09:52 Last Admin: 11/30/18 10:11 Dose: 60 mg Sumatriptan Succinate (Imitrex) 50 mg PO Q2H PRN PRN Reason: Headache Last Admin: 12/02/18 19:01 Dose: 50 mg
[2018-12-03] MEDS: Azithromycin 250 MG Tab PO SCH (11:35)
== END 2018-12-03 12:00 | disposition home or self-care (01) | DRG 139 ==
LOC: MW.ED 09:47 → MW.MS 11:07 → OBSVTOIN 13:03 → MW.MS 12-01 18:34
PROVIDERS: ADMIT Internal Medicine; ATTEND Internal Medicine
DX: J18.9 Pneumonia, unspecified organism (principal); Z96.649 Presence of unspecified artificial hip joint; J45.901 Unspecified asthma with (acute) exacerbation; Z87.891 Personal history of nicotine dependence; Z79.82 Long term (current) use of aspirin; Z79.899 Other long term (current) drug therapy; Z90.49 Acquired absence of other specified parts of digestive tract; Z90.89 Acquired absence of other organs
CPT/HCPCS: 36415; 71045; 71045-26; 80048; 80053; 81001; 85025; 85027; 87040; 87070; 87086; 87205; 94640; 96361; 96365; 96366; 96367; 96376; 99283; 99285-25; A4217; A9270-GY; G0378; J0456; J0696; J2001; J2930; J3475; J7040; J7050; J7620-GY